=== PATIENT | female | born 1990 | race African-American/Black ===

== ENCOUNTER 2024-12-04 02:05 | Emergency (ER) | payer OTHER ==
[~2024-12-04] VITALS: Ht 182.9 cm; Wt 99.8 kg
[2024-12-04 02:30] VITALS: BP 127/66; TEMP 98.2; O2SAT 99
[2024-12-04] MEDS: ONDANSETRON 4 MG TAB.RAPDIS SL ONE (03:46)
== END 2024-12-04 03:00 | disposition left against medical advice (07) ==
LOC: ER 02:10
DX: R10.30 Lower abdominal pain, unspecified (principal); R19.7 Diarrhea, unspecified; Z88.8 Allergy status to other drugs, medicaments and biological substances; Z53.29 Procedure and treatment not carried out because of patient's decision for other reasons